=== PATIENT | female | born 1990 | race Caucasian/White ===

== ENCOUNTER 2016-08-09 15:16 | Emergency (ER) | payer BC, OTHER ==
[2016-08-09] MEDS ORDERED: SODIUM CHLORIDE 0.9% 1,000 ML ONE (15:46)
[2016-08-09] MEDS ORDERED: ONDANSETRON 4 MG ODT TAB ONE (15:46)
[2016-08-09] MEDS ORDERED: PANTOPRAZOLE SODIUM 40 MG VIAL IV ONE (16:09)
[2016-08-09] MEDS ORDERED: MAALOX/LIDO2%VISC/SIMETHICONE 40 ML BOT ONE (16:09)
[2016-08-09] MEDS ORDERED: ACETAMINOPHEN 500 MG TABLET ONE (16:44)
== END 2016-08-09 16:55 | disposition home or self-care (01) ==
LOC: ED 15:16
DX: R10.11 Right upper quadrant pain (principal); R11.2 Nausea with vomiting, unspecified
CPT/HCPCS: 99283 ×2; 96374; A9270 ×3; C9113; J7030